=== PATIENT | female | born 1950 | race Caucasian/White ===

== ENCOUNTER 2016-07-18 10:05 | Emergency (ER) | payer MEDICARE, MEDICAID ==
--- NOTE | 2016-07-18 10:19 | ER Document Report ---
ED Medical Screen (RME) - General Stated Complaint: FEVER Mode of Arrival: Ambulatory Information source: Patient Notes: Patient presents to the emergency departments fever and her face hurts. Patient reports she has a history of allergies. Patient eating drinking without problems. Temperature was 99 this morning patient took Tylenol. Patient presents today with headache and reports she cannot put her teeth in because her ears are hurting. hx of HTN. Usually has fast HR. pt is on 4 psych meds. I have greeted and performed a rapid initial assessment of this patient. A comprehensive ED assessment and evaluation of the patient, analysis of test results and completion of the medical decision making process will be conducted by additional ED providers. TRAVEL OUTSIDE OF THE [place] IN LAST 30 DAYS: No - Related Data Allergies/Adverse Reactions: ciprofloxacin HCl [From Ciloxan] Allergy (Verified 08/19/15 20:23) fluoxetine HCl [From Prozac] Allergy (Verified 08/19/15 20:23) Penicillins Allergy (Verified 08/19/15 20:23) Past Medical History - Past Medical History Cardiac Medical History: Reports: Hx Hypertension Denies: Hx Coronary Artery Disease, Hx Heart Attack Pulmonary Medical History: Denies: Hx Asthma, Hx Bronchitis, Hx COPD, Hx Pneumonia Neurological Medical History: Denies: Hx Cerebrovascular Accident, Hx Seizures Endocrine Medical History: Denies: Hx Diabetes Mellitus Type 1, Hx Diabetes Mellitus Type 2 Musculoskeltal Medical History: Reports Hx Arthritis Skin Medical History: Reports Hx Cellulitis, Reports Hx MRSA Psychiatric Medical History: Reports: Hx Attention Deficit Hyperactivity Disorder, Hx Depression Past Surgical History: Reports: Hx Cholecystectomy, Hx Tonsillectomy, Hx Tubal Ligation. Denies: Hx Pacemaker - Immunizations Hx Diphtheria, Pertussis, Tetanus Vaccination: Yes - per patient within past 5 years Physical Exam - Vital signs Vitals: Temp Pulse Resp BP Pulse Ox 98.5 F 125 H 20 154/103 H 100 07/18/16 10:15 07/18/16 10:15 07/18/16 10:15 07/18/16 10:15 07/18/16 10:15 Course - Vital Signs Vital signs: Temp Pulse Resp BP Pulse Ox 98.5 F 125 H 20 154/103 H 100 07/18/16 10:15 07/18/16 10:15 07/18/16 10:15 07/18/16 10:15 07/18/16 10:15
--- NOTE | 2016-07-18 12:52 | ER Document Report ---
ED Flu Like - General Chief Complaint: Fever Stated Complaint: FEVER Mode of Arrival: Ambulatory Notes: The patient is a 65-year-old female, past medical history psychiatric illness, seasonal allergies, presents with 2 days of rhinorrhea and a rash on her chin after she was scratching at her "adult acne." She said she tried using triple antibiotic cream, but without any relief of her rash. She says that she usually receives Bactrim for her chin rash because the antibiotic cream does not work. She denies palpitations, fevers, difficulty swallowing, nausea, vomiting, chest pain, back pain, shortness of breath or tongue elevation. TRAVEL OUTSIDE OF THE [place] IN LAST 30 DAYS: No - Related Data Allergies/Adverse Reactions: ciprofloxacin HCl [From Ciloxan] Allergy (Verified 07/18/16 10:19) fluoxetine HCl [From Prozac] Allergy (Verified 07/18/16 10:19) Penicillins Allergy (Verified 07/18/16 10:19) Past Medical History - General Information source: Patient - Social History Smoking Status: Current Every Day Smoker Chew tobacco use (# tins/day): No Frequency of alcohol use: None Drug Abuse: None Family History: DM Patient has suicidal ideation: No Patient has homicidal ideation: No - Past Medical History Cardiac Medical History: Reports: Hx Hypertension Denies: Hx Coronary Artery Disease, Hx Heart Attack Pulmonary Medical History: Denies: Hx Asthma, Hx Bronchitis, Hx COPD, Hx Pneumonia Neurological Medical History: Denies: Hx Cerebrovascular Accident, Hx Seizures Endocrine Medical History: Denies: Hx Diabetes Mellitus Type 1, Hx Diabetes Mellitus Type 2 Renal/ Medical History: Denies: Hx Peritoneal Dialysis Musculoskeltal Medical History: Reports Hx Arthritis Skin Medical History: Reports Hx Cellulitis, Reports Hx MRSA Psychiatric Medical History: Reports: Hx Attention Deficit Hyperactivity Disorder, Hx Depression Past Surgical History: Reports: Hx Cholecystectomy, Hx Tonsillectomy, Hx Tubal Ligation. Denies: Hx Pacemaker - Immunizations Hx Diphtheria, Pertussis, Tetanus Vaccination: Yes - per patient within past 5 years Review of Systems - Review of Systems Notes: REVIEW OF SYSTEMS: CONSTITUTIONAL: -fevers, -chills EENT: -eye pain, -difficulty swallowing, +nasal congestion CARDIOVASCULAR: -chest pain, -syncope. RESPIRATORY: -cough, -SOB GASTROINTESTINAL: -abdominal pain, -nausea, -vomiting, -diarrhea GENITOURINARY: -dysuria, -hematuria MUSCULOSKELETAL: -back pain, -neck pain SKIN: +rash HEMATOLOGIC: -easy bruising or bleeding. LYMPHATIC: -swollen, enlarged glands. NEUROLOGICAL: -altered mental status or loss of consciousness, -headache, - neurologic symptoms PSYCHIATRIC: -anxiety, -depression. ALL OTHER SYSTEMS REVIEWED AND NEGATIVE. Physical Exam - Vital signs Vitals: Temp Pulse Resp BP Pulse Ox 98.5 F 125 H 20 154/103 H 100 07/18/16 10:15 07/18/16 10:15 07/18/16 10:15 07/18/16 10:15 07/18/16 10:15 - Notes Notes: PHYSICAL EXAMINATION: GENERAL: Well-appearing, well-nourished and in no acute distress. HEAD: Atraumatic, normocephalic. EYES: Pupils equal round and reactive to light, extraocular movements intact, sclera anicteric, conjunctiva are normal. ENT: nares patent, oropharynx clear without exudates. Swollen turbinates, Moist mucous membranes. NECK: Normal range of motion, supple without lymphadenopathy LUNGS: Breath sounds clear to auscultation bilaterally and equal. No wheezes rales or rhonchi. HEART: Regular rate and rhythm without murmurs ABDOMEN: Soft, nontender, normoactive bowel sounds. No guarding, no rebound. No masses appreciated. EXTREMITIES: Normal range of motion, no pitting or edema. No cyanosis. NEUROLOGICAL: Cranial nerves grossly intact. Normal speech, normal gait. Normal sensory, motor, and reflex exams. PSYCH: Normal mood, normal affect. SKIN: Erythematous rash with scabbed over lesions, Warm, Dry, normal turgor Course - Re-evaluation Re-evalutation: Patient appears well. Her initial tachycardia of 125 resolved when she was in the room. When I saw the patient, her heart rate was in the 80s. Patient has symptoms of allergic rhinitis. Instructed her about treatment with nasal steroids and antihistamines and she understands. Also has chin cellulitis. Will treat her with Bactrim and follow-up with primary care physician. Given strict return precautions and she understands. - Vital Signs Vital signs: Temp Pulse Resp BP Pulse Ox 98.7 F 78 18 138/82 H 98 07/18/16 16:00 07/18/16 16:00 07/18/16 16:00 07/18/16 16:00 07/18/16 16:00 Discharge - Discharge Clinical Impression: Seasonal allergic rhinitis Qualifiers: Allergic rhinitis trigger: unspecified Qualified Code(s): J30.2 - Other seasonal allergic rhinitis Cellulitis Qualifiers: Site of cellulitis: face Qualified Code(s): L03.211 - Cellulitis of face Condition: Good Disposition: HOME, SELF-CARE Additional Instructions: Cellulitis You have an infection of your skin and underlying soft tissues called cellulitis. This is due to bacteria, which can enter through any break in the skin, or even through an irritated hair follicle. Untreated, cellulitis will usually worsen. Antibiotics are required. Usually, warm packs or warm soaks, and elevation of the infected area are recommended. You should start getting better within 24 to 36 hours. Most infections respond quickly to the right medication. Follow-up care is important, however, to check for abscess (boil) formation, unsuspected foreign body, or resistant infection. If you develop fever, chills, or if the area of infection is becoming rapidly more swollen or painful, call the doctor at once. ACUTE ALLERGIC REACTION: Your symptoms are due to an allergic reaction. Allergy can cause hives, swelling of the hands, feet, and face, hoarseness, and difficulty swallowing or breathing. It may be due to exposure to medication, animal dander, foods, infection, or insect bites. Medication is a common cause, even when prior use of this same medication caused no problems. Acute treatment may include adrenalin and antihistamines. Usually, the specific allergic agent can't be identified unless repeated episodes occur. Home treatment includes the following: (1) Stop any suspicious medications. This will be discussed with you. (2) Oral antihistamines for the next four to five days. Example, diphenhydramine (Benadryl) every four hours. (3) You may also use cimetidine (Tagamet), ranitidine (Zantac), or famotidine ( Pepcid) every four hours if diphenhydramine is not controlling itching and hives. (4) Avoid aspirin until the hives completely disappear. (5) Avoid hot baths or showers until the hives are completely gone. Call the doctor if faintness, difficulty swallowing, tightness in the chest , or wheezing occurs. ANTIHISTAMINES: An antihistamine has been given and/or prescribed to control your symptoms. Antihistamines are used for many reasons, including itching, watering eyes, runny nose, allergic swelling, hives, and insect stings. Antihistamines may cause drowsiness, especially with the first dose. Do not operate machinery or drive while under the effects of the medication. Other common side effects include dry mouth and eyes. In older persons, antihistamines can occasionally cause urinary retention, constipation, and trouble focusing the eyes. Do not combine the medication with alcohol, or with any other medication without talking to your doctor. FOLLOW-UP CARE: If you have been referred to a physician for follow-up care, call the physician s office for an appointment as you were instructed or within the next two days. If you experience worsening or a significant change in your symptoms, notify the physician immediately or return to the Emergency Department at any time for re-evaluation. Prescriptions: Cetirizine HCl [Zyrtec 10 mg Tablet] 1 tab PO DAILY #30 tablet Fluticasone Propionate [Flonase Nasal Exline 50 Mcg/Exline 16 gm] 2 sprays NASL Q12 #1 inhaler Sulfamethoxazole/Trimethoprim [Bactrim Ds Tablet] 2 each PO BID #40 tablet
[2016-07-18 17:56] VITALS: BP 138/82
== END 2016-07-18 16:00 | disposition home or self-care (01) ==
LOC: ER 10:05
DX: J30.2 Other seasonal allergic rhinitis (principal); L03.211 Cellulitis of face; R00.0 Tachycardia, unspecified; R50.9 Fever, unspecified; F17.200 Nicotine dependence, unspecified, uncomplicated; I10 Essential (primary) hypertension; Z88.0 Allergy status to penicillin; Z88.3 Allergy status to other anti-infective agents; Z86.14 Personal history of Methicillin resistant Staphylococcus aureus infection; Z90.49 Acquired absence of other specified parts of digestive tract; Z98.51 Tubal ligation status
CPT/HCPCS: 99283

== ENCOUNTER → 2016-11-18 | Outpatient (CLI) | payer MEDICARE, MEDICAID ==
--- NOTE | 2016-11-18 12:39 | WOMENS IMAGING REPORT ---
EXAM DESCRIPTION: BILAT SCREENING MAMMO W/CAD COMPLETED DATE/TIME: 11/18/2016 10:44 am REASON FOR STUDY: ROUTINE SCREENING; Z12.31 Z12.31 ENCNTR SCREEN MAMMOGRAM FOR MALIGNANT NEOPLASM O F CHRISTIANO COMPARISON: 2011 TECHNIQUE: Standard craniocaudal and mediolateral oblique views of each breast recorded using Sogou[employer] l acquisition. LIMITATIONS: None. FINDINGS: No masses, calcifications or architectural distortion. No areas of suspicion. Read with the assistance of CAD. .[facility] - R2 Cenova Version 1.3 .[facility] - R2 Cenova Version 1.[address] - R2 Cenova Version 2.4 .[facility] - R2 Cenova Version 2.4 .[facility] - R2 District [employer] Version 9.2 IMPRESSION: NORMAL MAMMOGRAM. BIRADS 1. BREAST DENSITY: b. There are scattered areas of fibroglandular density. BIRAD: 1 NEGATIVE RECOMMENDATION: ROUTINE SCREENING COMMENT: The patient has been notified of the results by letter per SA requirements. Additional no tification policies are in place for contacting patient with suspicious or incomplete findings. Quality ID #[id number]: The [employer] recommends an annual screening mammogram for women aged 40 years or over. This facility utilizes a reminder system to ensure that all patients receive reminder letters, and/or direct phone calls for appointments. This includes reminders for routine scr eening mammograms, diagnostic mammograms, or other Breast Imaging Interventions when appropriate. Th is patient will be placed in the appropriate reminder system. The [employer] (ACR) has developed recommendations for screening MRI of the breast s in certain patient populations, to be used in conjunction with mammography. Breast MRI surveillanc e may be appropriate for women with more than 20% lifetime risk of developing breast cancer as deter mined by genetic testing, significant family history of the disease, or history of mantle radiation f or Hodgkins Disease. ACR Practice Guidelines 2008. TECHNICAL DOCUMENTATION: FINDING NUMBER: (1) ASSESSMENT: (1) JOB ID: [id number] [employer]- All Rights Reserved
== END ==
LOC: WI 10:41
PROVIDERS: ATTEND Physician Assistant
DX: Z12.31 Encounter for screening mammogram for malignant neoplasm of breast (principal)
CPT/HCPCS: 77067; G0202

== ENCOUNTER → 2017-01-12 | Outpatient (CLI) | payer MEDICARE, MEDICAID ==
--- NOTE | 2017-01-12 10:28 | WOMENS IMAGING REPORT ---
EXAM DESCRIPTION: BONE DENSITY HIP/SPINE COMPLETED DATE/TIME: 01/12/2017 9:23 am REASON FOR STUDY: AGE RELATED OSTEOPOROSIS M81.0 AGE-RELATED OSTEOPOROSIS W/O CURRENT PATHOLOGICAL FRAC COMPARISON: 2015 TECHNIQUE: Dual-Energy X-ray Absorptiometry (DEXA) of the AP Spine and Hip. LIMITATIONS: None. FINDINGS: LUMBAR SPINE: The bone mineral density (BMD) measured from L1-L4 in the AP projection correlates with a T-score of -2.5, which is osteoporotic as defined by the World Health Organization. This represents a 3.5% incr ease in bone density compared to 2015 HIP: The bone mineral density (BMD) measured in the left femoral neck at the hip correlates with a T-score of -1.9, which is osteopenic as defined by the World Health Organization. This is stable compared t o 2015 IMPRESSION: 1. LUMBAR SPINE: Osteoporotic 2. HIP: Osteopenic COMMENT: The World Health Organization defines low BMD as follows: T-score: Normal: Greater than -1.0 Osteopenia: Between -1.0 and -2.5 Osteoporosis: Less than -2.5 without fractures Established osteoporosis: Less than -2.5 with fractures In general, you may wish to consider: Diagnosis Treatment Follow-up DEXA Normal BMD Prevention 2-3 years Osteopenia Prevention/Therapy 1-2 years Osteoporosis Therapy Yearly TECHNICAL DOCUMENTATION: JOB ID: [id number]- All Rights Reserved
== END ==
LOC: WI 08:55
PROVIDERS: ATTEND Physician Assistant
DX: M81.0 Age-related osteoporosis without current pathological fracture (principal)
CPT/HCPCS: 77080

== ENCOUNTER 2017-09-06 15:18 | Emergency (ER) | payer MEDICARE, MEDICAID ==
[2017-09-06] MEDS ORDERED: ONDANSETRON HCL INJ/PF 4 MG/2 ML SDV IV ONE (16:47)
[2017-09-06] MEDS ORDERED: NORMAL SALINE 1000 ML 1,000 ML IV ONE (16:47)
--- NOTE | 2017-09-06 16:48 | ER Document Report ---
ED Medical Screen (RME) - General Chief Complaint: Abdominal Pain Stated Complaint: WEAKNESS Time Seen by Provider: 09/06/17 16:45 Notes: Patient states that she has had approximately 4-5 days of vomiting and been unable take her medications. She also states she has had blood and mucus in her stool for several months but has not been to the doctor. She states she does have a history of hepatitis C. TRAVEL OUTSIDE OF THE [place] IN LAST 30 DAYS: No - Related Data Allergies/Adverse Reactions: ciprofloxacin HCl [From Ciloxan] Allergy (Verified 09/06/17 16:26) fluoxetine HCl [From Prozac] Allergy (Verified 09/06/17 16:26) Penicillins Allergy (Verified 09/06/17 16:26) Past Medical History - Social History Chew tobacco use (# tins/day): No Frequency of alcohol use: None Drug Abuse: None - Past Medical History Cardiac Medical History: Reports: Hx Hypertension Denies: Hx Coronary Artery Disease, Hx Heart Attack Pulmonary Medical History: Denies: Hx Asthma, Hx Bronchitis, Hx COPD, Hx Pneumonia Neurological Medical History: Denies: Hx Cerebrovascular Accident, Hx Seizures Endocrine Medical History: Denies: Hx Diabetes Mellitus Type 1, Hx Diabetes Mellitus Type 2 Renal/ Medical History: Denies: Hx Peritoneal Dialysis Musculoskeltal Medical History: Reports Hx Arthritis Skin Medical History: Reports Hx Cellulitis, Reports Hx MRSA Psychiatric Medical History: Reports: Hx Attention Deficit Hyperactivity Disorder, Hx Depression Past Surgical History: Reports: Hx Cholecystectomy, Hx Tonsillectomy, Hx Tubal Ligation. Denies: Hx Pacemaker - Immunizations Hx Diphtheria, Pertussis, Tetanus Vaccination: Yes - per patient within past 5 years Physical Exam - Vital signs Vitals: Temp Pulse Resp BP Pulse Ox 98.9 F 97 16 129/81 H 98 09/06/17 15:58 09/06/17 15:58 09/06/17 15:58 09/06/17 15:58 09/06/17 15:58 Course - Vital Signs Vital signs: Temp Pulse Resp BP Pulse Ox 98.9 F 97 16 129/81 H 98 09/06/17 15:58 09/06/17 15:58 09/06/17 15:58 09/06/17 15:58 09/06/17 15:58 Doctor's Discharge - Discharge Referrals: VERONIQUE RUELAS MD [Primary Care Provider] - Follow up as needed
[2017-09-06 17:59] LABS: APPEARANCE,URINE CLEAR; BILIRUBIN,URINE NEGATIVE (NEGATIVE); COLOR,URINE YELLOW; GLUCOSE, URINE NEGATIVE (NEGATIVE); KETONES,URINE NEGATIVE (NEGATIVE); LEUKOCYTE ESTERASE,URINE TRACE (NEGATIVE); NITRITE,URINE NEGATIVE (NEGATIVE); PROTEIN,URINE NEGATIVE (NEGATIVE); UROBILINOGEN,URINE NEGATIVE mg/dL (<2.0)
[2017-09-06 18:32] LABS: ABSOLUTE MONOCYTES (AUTO) 0.5 10^3/uL (0.1-1.4); ABSOLUTE NEUT (AUTO) 3.6 10^3/uL (1.7-8.2); BASOPHILS % (AUTO) 0.8 % (0-2); EOSINOPHILS % (AUTO) 0.7 % (0-6); HEMATOCRIT 41.4 % (36.0-47.0); HEMOGLOBIN 13.4 g/dL (12.0-15.5); LYMPHOCYTES % (AUTO) 32.1 % (13-45); MEAN CORPUSCULAR HEMOGLOBIN 25.6 pg (27.0-33.4); MEAN CORPUSCULAR HGB CONC 32.4 g/dL (32.0-36.0); MEAN CORPUSCULAR VOLUME 79 fl (80-97); PLATELET COUNT 238 10^3/uL (150-450); RED BLOOD COUNT 5.25 10^6/uL (3.72-5.28); RED CELL DISTRIBUTION WIDTH 16.8 % (11.5-14.0); SEGMENTED NEUTROPHILS % (AUTO) 58.4 % (42-78); TOTAL CELLS COUNTED % (AUTO) 100 %; WHITE BLOOD COUNT 6.1 10^3/uL (4.0-10.5)
[2017-09-06] MEDS ORDERED: PROMETHAZINE HCL INJ 25 MG/1 ML VIAL IM ONE (18:55)
[2017-09-06] MEDS ORDERED: KETOROLAC TROMETHAMINE INJ/PF 30 MG/1 ML SDV IV ONE (18:56)
[2017-09-06 19:00] LABS: ALANINE AMINOTRANSFERASE 39 U/L (9-52); ALBUMIN 4.4 g/dL (3.5-5.0); ALKALINE PHOSPHATASE 73 U/L (38-126); ANION GAP 10 (5-19); ASPARTATE AMINO TRANSFERASE 46 U/L (14-36); BILIRUBIN,DIRECT 0.4 mg/dL (0.0-0.4); BILIRUBIN,TOTAL 0.6 mg/dL (0.2-1.3); BLOOD UREA NITROGEN 12 mg/dL (7-20); CALCIUM 10.8 mg/dL (8.4-10.2); CARBON DIOXIDE 31 mmol/L (22-30); CHLORIDE 101 mmol/L (98-107); GLUCOSE 112 mg/dL (75-110); LIPASE 275.7 U/L (23-300); TOTAL PROTEIN 8.5 g/dL (6.3-8.2)
[2017-09-06] MEDS ORDERED: DICYCLOMINE HCL 20 MG TABLET PO ONE (19:04)
--- NOTE | 2017-09-06 19:19 | ER Document Report ---
ED General - General Mode of Arrival: Ambulatory Information source: Patient TRAVEL OUTSIDE OF THE [place] IN LAST 30 DAYS: No <KATIE FRANKLIN - Last Filed: 09/06/17 20:12> <YAIN BAKER - Last Filed: 09/06/17 20:14> - General Chief Complaint: Abdominal Pain Stated Complaint: WEAKNESS Time Seen by Provider: 09/06/17 16:45 Notes: Patient is a 66 year old female with a history of Hepatitis C presents to the emergency department complaining of multiple symptoms including nausea, vomiting , abdominal pain, bilateral flank pain, and dysuria (which she relates to recent constipation) onset 4-5 days ago. Patient states she believes are due to her Hepatitis C and further mentions she has not been able to take her medications. Patients states the nausea medication she received in triage did not alleviate her symptoms. (KATIE FRANKLIN) - Related Data Allergies/Adverse Reactions: ciprofloxacin HCl [From Ciloxan] Allergy (Verified 09/06/17 16:26) fluoxetine HCl [From Prozac] Allergy (Verified 09/06/17 16:26) Penicillins Allergy (Verified 09/06/17 16:26) Past Medical History - General Information source: Patient - Social History Smoking Status: Current Every Day Smoker Chew tobacco use (# tins/day): No Frequency of alcohol use: None Drug Abuse: None Family History: DM Patient has suicidal ideation: No Patient has homicidal ideation: No - Past Medical History Cardiac Medical History: Reports: Hx Hypertension GI Medical History: Reports: Hx Gastroesophageal Reflux Disease Musculoskeltal Medical History: Reports Hx Arthritis Skin Medical History: Reports Hx Cellulitis, Reports Hx MRSA Psychiatric Medical History: Reports: Hx Attention Deficit Hyperactivity Disorder, Hx Bipolar Disorder, Hx Depression Past Surgical History: Reports: Hx Cholecystectomy, Hx Tonsillectomy, Hx Tubal Ligation - Immunizations Hx Diphtheria, Pertussis, Tetanus Vaccination: Yes - per patient within past 5 years <KATIE FRANKLIN - Last Filed: 09/06/17 20:12> Review of Systems - Review of Systems Constitutional: No symptoms reported EENT: No symptoms reported Cardiovascular: No symptoms reported Respiratory: No symptoms reported Gastrointestinal: See HPI, Abdominal pain, Nausea, Vomiting Genitourinary: See HPI, Dysuria, Flank pain Female Genitourinary: No symptoms reported Musculoskeletal: No symptoms reported Skin: No symptoms reported Hematologic/Lymphatic: No symptoms reported Neurological/Psychological: No symptoms reported -: Yes All other systems reviewed and negative <KATIE FRANKLIN - Last Filed: 09/06/17 20:12> Physical Exam <KATIE FRANKLIN - Last Filed: 09/06/17 20:12> <YANI BAKER - Last Filed: 09/06/17 20:14> - Vital signs Vitals: Temp Pulse Resp BP Pulse Ox 98.9 F 97 16 129/81 H 98 09/06/17 15:58 09/06/17 15:58 09/06/17 15:58 09/06/17 15:58 09/06/17 15:58 - Notes Notes: GENERAL: Alert, interacts well. No acute distress. HEAD: Normocephalic, atraumatic. EYES: Pupils equal, round, and reactive to light. Extraocular movements intact. ENT: Oral mucosa moist, tongue midline NECK: Full range of motion. Supple. Trachea midline. LUNGS: Right lateral chest wall tenderness to palpation. Clear to auscultation bilaterally, no wheezes, rales, or rhonchi. No respiratory distress. ABDOMEN: Soft, RUQ tenderness to palpation. Non-distended. Bowel sounds present in all 4 quadrants. EXTREMITIES: Moves all 4 extremities spontaneously. NEUROLOGICAL: Alert and oriented x3. Normal speech. PSYCH: Normal affect, normal mood. SKIN: Warm, dry, normal turgor. No rashes or lesions noted. (NOEMIKATIE LOMAS) Course - Laboratory Result Diagrams: 09/06/17 18:12 09/06/17 18:12 <KATIE FRANKLIN - Last Filed: 09/06/17 20:12> - Laboratory Result Diagrams: 09/06/17 18:12 09/06/17 18:12 - Diagnostic Test Radiology reviewed: Reports reviewed <YANI BAKER - Last Filed: 09/06/17 20:14> - Re-evaluation Re-evalutation: 09/06/17 20:09 Patient is a 66-year-old female who comes in complaining of some abdominal discomfort and nausea which she relates to her chronic hepatitis. Patient denies cough or fever. Patient states that she has had dysuria recently related to constipation. Abdomen is soft nondistended and nonsurgical appearing. Troponin negative and chest x-ray with no acute findings. Blood work within normal limits. Patient is feeling better after nausea medication and fluids. She is now keeping p.o. down. Denies any blood in her stool and does not want a rectal exam today. She is to follow-up with her doctor if she has any further concerns. Stable for discharge. Understands and agrees with plan. (YANI BAKER) - Vital Signs Vital signs: Temp Pulse Resp BP Pulse Ox 98.9 F 97 16 129/81 H 98 09/06/17 15:58 09/06/17 15:58 09/06/17 15:58 09/06/17 15:58 09/06/17 15:58 - Laboratory Laboratory results interpreted by me: 09/06/17 09/06/17 09/06/17 16:00 18:12 18:12 MCV 79 L MCH 25.6 L RDW 16.8 H Carbon Dioxide 31 H Glucose 112 H Calcium 10.8 H AST 46 H Total Protein 8.5 H Ur Leukocyte Esterase TRACE H Discharge <KATIE FRANKLIN - Last Filed: 09/06/17 20:12> <YANI BAKER - Last Filed: 09/06/17 20:14> - Discharge Clinical Impression: Abdominal discomfort Nausea & vomiting Qualifiers: Vomiting type: unspecified Vomiting Intractability: non-intractable Qualified Code(s): R11.2 - Nausea with vomiting, unspecified Condition: Stable Disposition: HOME, SELF-CARE Instructions: Abdominal Pain ([facility]), Vomiting ([facility]) Prescriptions: Ondansetron [Zofran Odt 4 mg Tablet] 1 tab PO Q6HP PRN #15 tab.rapdis PRN Reason: For Nausea/Vomiting Dicyclomine HCl [Bentyl 20 mg Tablet] 20 mg PO TIDP PRN #40 tablet PRN Reason: Promethazine HCl [Phenergan 25 mg Tablet] 1 tab PO Q6H PRN #15 tablet PRN Reason: Referrals: VERONIQUE RUELAS MD [Primary Care Provider] - Follow up in 3-5 days Scribe Documentation - Scribe Written by Kori:: Kori Bond, 09/06/2017 19:22 acting as scribe for :: Delphine <KATIE FRANKLIN - Last Filed: 09/06/17 20:12>
--- NOTE | 2017-09-06 19:43 | RADIOLOGY REPORT (SQ) ---
EXAM DESCRIPTION: CHEST 2 VIEWS COMPLETED DATE/TIME: 09/06/2017 7:32 pm REASON FOR STUDY: pain, possible fever COMPARISON: None. EXAM PARAMETERS: NUMBER OF VIEWS: two views TECHNIQUE: Digital Frontal and Lateral radiographic views of the chest acquired. RADIATION DOSE: NA LIMITATIONS: none FINDINGS: LUNGS AND PLEURA: No opacities, masses or pneumothorax. No pleural effusion. MEDIASTINUM AND HILAR STRUCTURES: No masses or contour abnormalities. HEART AND VASCULAR STRUCTURES: Heart normal size. No evidence for failure. BONES: No acute findings. HARDWARE: None in the chest. OTHER: No other significant finding. IMPRESSION: NO ACUTE RADIOGRAPHIC FINDING IN THE CHEST. TECHNICAL DOCUMENTATION: JOB ID: [id number] [employer]- All Rights Reserved Reading location - IP/workstation name: [email or web address]
[2017-09-06 20:18] VITALS: BP 134/80
--- NOTE | 2017-09-07 22:38 | EKG REPORT ---
SEVERITY:- BORDERLINE ECG - SINUS RHYTHM PROBABLE LEFT ATRIAL ABNORMALITY : Confirmed by: Maira Castañeda 07-Sep-2017 22:37:02
== END 2017-09-06 20:28 | disposition home or self-care (01) ==
LOC: ER 15:18
DX: R10.9 Unspecified abdominal pain (principal); R11.2 Nausea with vomiting, unspecified; R53.1 Weakness; R30.0 Dysuria; I10 Essential (primary) hypertension; F17.200 Nicotine dependence, unspecified, uncomplicated; Z86.19 Personal history of other infectious and parasitic diseases; Z88.0 Allergy status to penicillin; Z86.14 Personal history of Methicillin resistant Staphylococcus aureus infection; Z90.49 Acquired absence of other specified parts of digestive tract; Z98.51 Tubal ligation status
CPT/HCPCS: 93005; 99285; 96372; 96361; 96374; 36415; 83690; 85025; 80053; 81001; 84484; 71046; 93010; A9270; J2550; J2405; J7030; J3490

== ENCOUNTER 2017-09-26 18:15 | Emergency (ER) | payer MEDICARE, MEDICAID ==
[2017-09-26] MEDS ORDERED: PREDNISONE 20 MG TABLET PO ONE (19:27)
[2017-09-26] MEDS ORDERED: CLINDAMYCIN HCL 150 MG CAPSULE PO ONE (19:27)
[2017-09-26] MEDS ORDERED: DIPHENHYDRAMINE HCL 50 MG CAPSULE PO ONE (19:28)
--- NOTE | 2017-09-26 19:33 | ER Document Report ---
ED General - General Chief Complaint: Skin Sore(s) Stated Complaint: POSSIBLE RASH Time Seen by Provider: 09/26/17 19:15 Mode of Arrival: Ambulatory Information source: Patient TRAVEL OUTSIDE OF THE [place] IN LAST 30 DAYS: No - HPI Notes: Patient is a 66-year-old female with history of previous cellulitis presents to the emergency department with report that she has had 3-4 day history of skin rash and irritation in various locations worse left arm and left ear. The patient is unaware of any new exposures or insect bites or new foods or medication changes, but the patient reports itching with the skin rash. She denies any difficulty breathing but questions mild swelling around her gumline in her mouth. The patient denies any chest pain or difficulty breathing or fever or chills or nausea or vomiting. - Related Data Allergies/Adverse Reactions: ciprofloxacin HCl [From Ciloxan] Allergy (Verified 09/26/17 18:16) fluoxetine HCl [From Prozac] Allergy (Verified 09/26/17 18:16) Penicillins Allergy (Verified 09/26/17 18:16) Past Medical History - General Information source: Patient - Social History Smoking Status: Unknown if Ever Smoked Frequency of alcohol use: None Drug Abuse: None Lives with: Alone Family History: DM Patient has suicidal ideation: No Patient has homicidal ideation: No - Past Medical History Cardiac Medical History: Reports: Hx Hypertension Denies: Hx Coronary Artery Disease, Hx Heart Attack Pulmonary Medical History: Denies: Hx Asthma, Hx Bronchitis, Hx COPD, Hx Pneumonia Neurological Medical History: Denies: Hx Cerebrovascular Accident, Hx Seizures Endocrine Medical History: Denies: Hx Diabetes Mellitus Type 1, Hx Diabetes Mellitus Type 2 Renal/ Medical History: Denies: Hx Peritoneal Dialysis GI Medical History: Reports: Hx Gastroesophageal Reflux Disease Musculoskeltal Medical History: Reports Hx Arthritis Skin Medical History: Reports Hx Cellulitis, Reports Hx MRSA Psychiatric Medical History: Reports: Hx Attention Deficit Hyperactivity Disorder, Hx Bipolar Disorder, Hx Depression Past Surgical History: Reports: Hx Cholecystectomy, Hx Tonsillectomy, Hx Tubal Ligation. Denies: Hx Pacemaker - Immunizations Hx Diphtheria, Pertussis, Tetanus Vaccination: Yes - per patient within past 5 years Review of Systems - Review of Systems Notes: REVIEW OF SYSTEMS: CONSTITUTIONAL : Denies fever, chills, or sweats. EENT: Denies eye, ear, throat is symptoms. Denies nasal or sinus congestion or discharge. Denies throat, tongue swelling or difficulty swallowing. CARDIOVASCULAR: Denies chest pain. Denies palpitations or racing or irregular heart beat. Denies ankle edema. RESPIRATORY: Denies cough, cold, or chest congestion. Denies shortness of breath, difficulty breathing, or wheezing. GASTROINTESTINAL: Denies abdominal pain or distention. Denies nausea, vomiting , or diarrhea. Denies blood in vomitus, stools, or per rectum. Denies black, tarry stools. Denies constipation. GENITOURINARY: Denies difficulty urinating, painful urination, burning, frequency, blood in urine, or discharge. FEMALE GENITOURINARY: Denies vaginal bleeding, heavy or abnormal periods, irregular periods. Denies vaginal discharge or odor. MUSCULOSKELETAL: Denies back or neck pain or stiffness. Denies joint pain or swelling. SKIN: Patient reports skin rash with itching. HEMATOLOGIC : Denies easy bruising or bleeding. LYMPHATIC: Denies swollen, enlarged glands. NEUROLOGICAL: Denies confusion or altered mental status. Denies passing out or loss of consciousness. Denies dizziness or lightheadedness. Denies headache. Denies weakness or paralysis or loss of use of either side. Denies problems with gait or speech. Denies sensory loss, numbness, or tingling. Denies seizures. PSYCHIATRIC: Denies anxiety or stress. Denies depression, suicidal ideation, or homicidal ideation. ALL OTHER SYSTEMS REVIEWED AND NEGATIVE. Dictation was performed using [employer] voice recognition software Physical Exam - Vital signs Vitals: Temp Pulse Resp BP Pulse Ox 99.4 F 84 20 153/92 H 98 09/26/17 18:27 09/26/17 18:27 09/26/17 18:27 09/26/17 18:27 09/26/17 18:27 - Notes Notes: PHYSICAL EXAMINATION: GENERAL: Well-appearing, well-nourished and in no acute distress. HEAD: Atraumatic, normocephalic. EYES: Pupils equal round and reactive to light, extraocular movements intact, conjunctiva are normal. ENT: Nares patent, oropharynx clear without exudates. Moist mucous membranes. No obvious oropharyngeal swelling or mucous membrane lesions. NECK: Normal range of motion, supple without lymphadenopathy LUNGS: Breath sounds clear to auscultation bilaterally and equal. No wheezes rales or rhonchi. HEART: Regular rate and rhythm without murmurs ABDOMEN: Soft, nontender, nondistended abdomen. No guarding, no rebound. No masses appreciated. Female : deferred Musculoskeletal: Normal range of motion, no pitting or edema. No cyanosis. No arthralgias or swelling. NEUROLOGICAL: Cranial nerves grossly intact. Normal speech, normal gait. Normal sensory, motor exams PSYCH: Normal mood, normal affect. SKIN: Warm, Dry, normal turgor. Minimal urticaria noted with scattered areas on legs to on the trunk, but area on the left lateral forearm and the left ear show questionable early cellulitis. No petechiae. No evidence for abscess. Distally, the patient is neurovascularly intact. Course - Re-evaluation Re-evalutation: 09/26/17 19:37 Patient was given clindamycin, prednisone and Benadryl. No evidence for significant abscess or anaphylaxis or systemic infection or other abnormality. - Vital Signs Vital signs: Temp Pulse Resp BP Pulse Ox 99.4 F 84 20 153/92 H 98 09/26/17 18:27 09/26/17 18:27 09/26/17 18:27 09/26/17 18:27 09/26/17 18:27 Discharge - Discharge Clinical Impression: Allergic reaction Qualifiers: Encounter type: initial encounter Qualified Code(s): T78.40XA - Allergy, unspecified, initial encounter Cellulitis Qualifiers: Site of cellulitis: other site Qualified Code(s): L03.818 - Cellulitis of other sites Condition: Stable Disposition: HOME, SELF-CARE Instructions: Acute Allergic Reaction ([facility]), Cellulitis ([facility]) Additional Instructions: Take Benadryl as directed for itching and skin rash. Return to the emergency department in case of severe itching or rash or fever or worsening redness. Prescriptions: Clindamycin HCl [Cleocin 150 mg Capsule] 150 mg PO Q6 #40 capsule Prednisone [Deltasone 10 mg Tablet] 10 mg PO ASDIR PRN #21 tablet PRN Reason: Referrals: VERONIQUE RUELAS MD [Primary Care Provider] - Follow up as needed
[2017-09-26] MEDS ORDERED: TRAMADOL HCL 50 MG TABLET PO ONE (19:52)
[2017-09-26 20:01] VITALS: BP 176/95
== END 2017-09-26 20:01 | disposition home or self-care (01) ==
LOC: ER 18:15
DX: L03.818 Cellulitis of other sites (principal); T78.40XA Allergy, unspecified, initial encounter; L98.9 Disorder of the skin and subcutaneous tissue, unspecified
CPT/HCPCS: 99283; A9270 ×4; J7512

== ENCOUNTER 2017-10-19 10:22 | Emergency (ER) | payer MEDICARE, MEDICAID ==
--- NOTE | 2017-10-19 11:24 | ER Document Report ---
ED General - General Chief Complaint: Fall Stated Complaint: FALL/FACE INJURY Time Seen by Provider: 10/19/17 11:18 TRAVEL OUTSIDE OF THE [place] IN LAST 30 DAYS: No - HPI Patient complains to provider of: fall head injury Notes: Patient coming in for evaluation after a fall. Patient states she tripped and fell last night no loss consciousness however landed straight on her face. Patient has obvious swelling to the bridge of her nose was seen in urgent care encouraged to come to ER for further evaluation and CT scan of her head. Patient denies being on any blood thinning medications. Patient states only pain she is having is at the nasal bridge. Denies any oral pain with minimal pain or extremity pain. Patient alert and oriented 3 - Related Data Allergies/Adverse Reactions: ciprofloxacin HCl [From Ciloxan] Allergy (Verified 10/19/17 10:23) fluoxetine HCl [From Prozac] Allergy (Verified 10/19/17 10:23) Penicillins Allergy (Verified 10/19/17 10:23) Past Medical History - Social History Smoking Status: Current Every Day Smoker Chew tobacco use (# tins/day): No Frequency of alcohol use: None Drug Abuse: None Family History: DM Patient has suicidal ideation: No Patient has homicidal ideation: No - Past Medical History Cardiac Medical History: Reports: Hx Hypertension Denies: Hx Coronary Artery Disease, Hx Heart Attack Pulmonary Medical History: Denies: Hx Asthma, Hx Bronchitis, Hx COPD, Hx Pneumonia Neurological Medical History: Denies: Hx Cerebrovascular Accident, Hx Seizures Endocrine Medical History: Denies: Hx Diabetes Mellitus Type 1, Hx Diabetes Mellitus Type 2 Renal/ Medical History: Denies: Hx Peritoneal Dialysis GI Medical History: Reports: Hx Gastroesophageal Reflux Disease Musculoskeltal Medical History: Reports Hx Arthritis Skin Medical History: Reports Hx Cellulitis, Reports Hx MRSA Psychiatric Medical History: Reports: Hx Attention Deficit Hyperactivity Disorder, Hx Bipolar Disorder, Hx Depression Past Surgical History: Reports: Hx Cholecystectomy, Hx Tonsillectomy, Hx Tubal Ligation. Denies: Hx Pacemaker - Immunizations Hx Diphtheria, Pertussis, Tetanus Vaccination: Yes - per patient within past 5 years Review of Systems - Review of Systems Constitutional: No symptoms reported EENT: Other - Nasal pain Cardiovascular: No symptoms reported Respiratory: No symptoms reported Gastrointestinal: No symptoms reported Genitourinary: No symptoms reported Female Genitourinary: No symptoms reported Musculoskeletal: No symptoms reported Skin: No symptoms reported Hematologic/Lymphatic: No symptoms reported Neurological/Psychological: No symptoms reported -: Yes All other systems reviewed and negative Physical Exam - Vital signs Vitals: Temp Pulse Resp BP Pulse Ox 98.3 F 105 H 18 154/84 H 98 10/19/17 10:27 10/19/17 10:27 10/19/17 10:27 10/19/17 10:27 10/19/17 10:27 Interpretation: Normal - General General appearance: Appears well, Alert - HEENT Head: Normocephalic, Atraumatic Eyes: Normal Conjunctiva: Normal Cornea: Normal Extraocular movements intact: Yes Pupils: PERRL Nasal: Other - Swelling in his abrasion with bilateral ecchymosis. Patient does not have any signs of septal hematomas upon looking in both nares. - Respiratory Respiratory status: No respiratory distress Chest status: Nontender Breath sounds: Normal Chest palpation: Normal - Cardiovascular Rhythm: Regular Heart sounds: Normal auscultation Murmur: No - Abdominal Inspection: Normal Distension: No distension Bowel sounds: Normal Tenderness: Nontender Organomegaly: No organomegaly - Back Back: Normal, Nontender - Extremities General upper extremity: Normal inspection, Nontender, Normal color, Normal ROM , Normal temperature General lower extremity: Normal inspection, Nontender, Normal color, Normal ROM , Normal temperature, Normal weight bearing. No: Patito's sign - Neurological Neuro grossly intact: Yes Cognition: Normal Orientation: AAOx4 Lisandro Coma Scale Eye Opening: Spontaneous Lisandro Coma Scale Verbal: Oriented Lisandro Coma Scale Motor: Obeys Commands Finley Coma Scale Total: 15 Speech: Normal Motor strength normal: LUE, RUE, LLE, RLE Sensory: Normal - Psychological Associated symptoms: Normal affect, Normal mood - Skin Skin Temperature: Warm Skin Moisture: Dry Skin Color: Normal Course - Re-evaluation Re-evalutation: 10/19/17 11:[address] scan performed showing no signs of acute intracranial injury. 10/19/17 14:13 CT scan was negative for acute intracranial injury also negative for nasal fracture. This was relayed to the patient was much relieved. Patient was continue with ice packs explained patient to take Tylenol Motrin however states that she has hepatitis C and will refrain from taking anything for her pain level at her wounds heal naturally. Patient will be discharged home - Vital Signs Vital signs: Temp Pulse Resp BP Pulse Ox 98.2 F 94 17 153/87 H 100 10/19/17 13:19 10/19/17 13:19 10/19/17 13:19 10/19/17 13:19 10/19/17 13:19 Discharge - Discharge Clinical Impression: Closed head injury, Facial contusion Condition: Good Disposition: HOME, SELF-CARE Instructions: Contusion ([facility]), Head Injury Precautions ([facility]) Additional Instructions: Your CT scan did not show any signs of nasal fracture. Would recommend taking Tylenol for pain control may also place ice packs in your nose to help out with swelling. When I recommend follow-up with her primary care physician in 1-2 weeks. Return to the ER for any other concerning issues. CT of the head also did not show any signs of bleeding or any intracranial abnormality Referrals: VERONIQUE RUELAS MD [Primary Care Provider] - Follow up as needed
--- NOTE | 2017-10-19 12:49 | RADIOLOGY REPORT (SQ) ---
EXAM DESCRIPTION: CT HEAD WITHOUT COMPLETED DATE/TIME: 10/19/2017 12:03 pm REASON FOR STUDY: nasal injury fall COMPARISON: CT brain 05/31/2013 TECHNIQUE: Axial images acquired through the brain without intravenous contrast. Images reviewed wi th bone, brain and subdural windows. Additional sagittal and coronal reconstructions were generated. Images stored on PACS. All CT scanners at this facility use dose modulation, iterative reconstruction, and/or weight based d osing when appropriate to reduce radiation dose to as low as reasonably achievable (ALARA). [facility]: Dose Right [facility]: CareDose [facility]: Dose Right [facility]: Teradose 4D [facility]: Vimbly RADIATION DOSE: CT Rad equipment meets quality standard of care and radiation dose reduction techniq ues were employed. CTDIvol: 53.2 mGy. DLP: 1017 mGy-cm. mGy. LIMITATIONS: None. FINDINGS: VENTRICLES: Normal size and contour. CEREBRUM: No masses. No hemorrhage. No midline shift. No evidence for acute infarction. Extensive areas of low density in the white matter, most likely chronic small vessel ischemic change. This is stable compared to 2013 CEREBELLUM: No masses. No hemorrhage. No alteration of density. No evidence for acute infarction. EXTRAAXIAL SPACES: No fluid collections. No masses. ORBITS AND GLOBE: No intra- or extraconal masses. Normal contour of globe without masses. CALVARIUM: No fracture. PARANASAL SINUSES: No fluid or mucosal thickening. SOFT TISSUES: No mass or hematoma. No nasal bone fracture OTHER: No other significant finding. IMPRESSION: No acute facial fractures. No acute intracranial changes. Extensive white matter disease EVIDENCE OF ACUTE STROKE: NO. COMMENT: Quality ID # [id number]: Final reports with documentation of one or more dose reduction techniques (e.g., Automated exposure control, adjustment of the mA and/or kV according to patient size, use of iterative reconstruction technique) TECHNICAL DOCUMENTATION: JOB ID: [id number] [employer]- All Rights Reserved Reading location - IP/workstation name: [email or web address]
[2017-10-19 13:20] VITALS: BP 153/87
== END 2017-10-19 13:20 | disposition home or self-care (01) ==
LOC: ER 10:22
DX: S09.90XA Unspecified injury of head, initial encounter (principal); S00.83XA Contusion of other part of head, initial encounter; W01.0XXA Fall on same level from slipping, tripping and stumbling without subsequent striking against object, initial encounter; F17.200 Nicotine dependence, unspecified, uncomplicated; Z88.0 Allergy status to penicillin; I10 Essential (primary) hypertension; Z90.49 Acquired absence of other specified parts of digestive tract; Z98.51 Tubal ligation status
CPT/HCPCS: 70450; 99284

== ENCOUNTER 2019-05-16 23:51 | Emergency (ER) | payer MEDICARE, MEDICAID ==
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
--- NOTE | 2019-05-17 01:42 | RADIOLOGY REPORT (SQ) ---
EXAM DESCRIPTION: CT MAXILLOFACIAL WITHOUT IV CONTRAST COMPLETED DATE/TME: 05/17/2019 00:17 CLINICAL HISTORY: 68 years Female nose injury COMPARISON: None. TECHNIQUE: Contiguous axial images obtained through the maxillofacial region without IV contrast. Reformatted images obtained. This exam was performed according to our department optimization program which includes automated exposure control, adjustment of the mA and/or kv according to patient size and/or use of iterative reconstruction technique. FINDINGS: The post septal orbits appear unremarkable. No significant mucosal thickening or air-fluid levels in the paranasal sinuses. The visualized segments of the middle ears and mastoid air cells appear clear. Mucous retention cyst or polyp in the left maxillary sinus. Comminuted fracture of the nasal bones with associated soft tissue swelling. Nasal septum appears intact. IMPRESSION: Comminuted fracture of the nasal bones with soft tissue swelling
[2019-05-17] MEDS ORDERED: ALPRAZOLAM 0.5 MG TABLET PO ONE (10:29)
[2019-05-17] MEDS ORDERED: ACETAMINOPHEN 325 MG TABLET PO ONE (10:29)
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
[2019-05-17] MEDS ORDERED: TRAZODONE HCL 50 MG TABLET PO ONE (13:43)
[2019-05-17] MEDS ORDERED: CHLORPROMAZINE HCL INJ 25 MG/1 ML AMPULE IM ONE ×2 (13:47→19:15)
[2019-05-17 14:36] LABS: ABSOLUTE BASOPHILS # (AUTO) 0.1 10^3/uL (0.0-0.2); ABSOLUTE EOSINOPHILS # (AUTO) 0.1 10^3/uL (0.0-0.6); ABSOLUTE LYMPHOCYTES (AUTO) 1.5 10^3/uL (0.5-4.7); ABSOLUTE MONOCYTES (AUTO) 0.6 10^3/uL (0.1-1.4); ABSOLUTE NEUT (AUTO) 4.2 10^3/uL (1.7-8.2); EOSINOPHILS % (AUTO) 2.2 % (0-6); HEMATOCRIT 35.2 % (36.0-47.0); HEMOGLOBIN 11.8 g/dL (12.0-15.5); MEAN CORPUSCULAR HEMOGLOBIN 26.7 pg (27.0-33.4); MEAN CORPUSCULAR HGB CONC 33.4 g/dL (32.0-36.0); MEAN CORPUSCULAR VOLUME 80 fl (80-97); MONOCYTES % (AUTO) 9.6 % (3-13); PLATELET COUNT 250 10^3/uL (150-450); RED CELL DISTRIBUTION WIDTH 16.6 % (11.5-14.0); SEGMENTED NEUTROPHILS % (AUTO) 64.2 % (42-78); TOTAL CELLS COUNTED % (AUTO) 100 %; WHITE BLOOD COUNT 6.6 10^3/uL (4.0-10.5)
[2019-05-17 14:57] LABS: ACETAMINOPHEN 11 ug/mL (10-30); ANION GAP 9 (5-19); BLOOD UREA NITROGEN 11 mg/dL (7-20); CALCIUM 10.4 mg/dL (8.4-10.2); CARBON DIOXIDE 23 mmol/L (22-30); CHLORIDE 107 mmol/L (98-107); GLUCOSE 139 mg/dL (75-110); POTASSIUM 3.7 mmol/L (3.6-5.0)
[2019-05-17 14:58] LABS: ALCOHOL < 10 mg/dL (NONE DETECTED); SALICYLATE < 1.0 mg/dL (2.0-20.0)
--- NOTE | 2019-05-17 17:52 | RADIOLOGY REPORT (SQ) ---
EXAM DESCRIPTION: CT HEAD WITHOUT COMPLETED DATE/TIME: 05/17/2019 5:23 pm REASON FOR STUDY: facial injury, psychotic behavior COMPARISON: None. TECHNIQUE: Axial images acquired through the brain without intravenous contrast. Images reviewed wi th bone, brain and subdural windows. Images stored on PACS. All CT scanners at this facility use dose modulation, iterative reconstruction, and/or weight based d osing when appropriate to reduce radiation dose to as low as reasonably achievable (ALARA). [facility]: Dose Right [facility]: CareDose [facility]: Dose Right [facility]: Teradose 4D [facility]: Smart CPower RADIATION DOSE: CT Rad equipment meets quality standard of care and radiation dose reduction techniq ues were employed. CTDIvol: 55.2 mGy. DLP: 1029 mGy-cm. mGy. LIMITATIONS: None. FINDINGS: VENTRICLES: Normal size and contour. CEREBRUM: No masses. No hemorrhage. No midline shift. No evidence for acute infarction. Extensive areas of low density in the white matter most likely chronic small vessel ischemic changes. CEREBELLUM: No masses. No hemorrhage. No alteration of density. No evidence for acute infarction. EXTRAAXIAL SPACES: No fluid collections. No masses. ORBITS AND GLOBE: No intra- or extraconal masses. Normal contour of globe without masses. CALVARIUM: No fracture. PARANASAL SINUSES: There is a mucous retention cyst in the left maxillary sinus. SOFT TISSUES: No mass or hematoma. OTHER: No other significant finding. IMPRESSION: CHRONIC MICROVASCULAR ISCHEMIA. NO ACUTE IMAGING FINDINGS IN THE BRAIN. MILD LEFT MAXIL MARU SINUS DISEASE. EVIDENCE OF ACUTE STROKE: NO. COMMENT: Quality ID # 436: Final reports with documentation of one or more dose reduction techniques (e.g., Automated exposure control, adjustment of the mA and/or kV according to patient size, use of iterative reconstruction technique) TECHNICAL DOCUMENTATION: JOB ID: [id number] 3428 [employer]- All Rights Reserved Reading location - IP/workstation name: [email or web address]
--- NOTE | 2019-05-17 18:07 | RADIOLOGY REPORT (SQ) ---
EXAM DESCRIPTION: CT CERVICAL SPINE WITHOUT COMPLETED DATE/TIME: 05/17/2019 5:23 pm REASON FOR STUDY: facial injury, psychotic behavior COMPARISON: None. TECHNIQUE: Axial images acquired through the cervical spine without intravenous contrast. Images re viewed with lung, soft tissue and bone windows. Reconstructed coronal and sagittal MPR images review ed. Images stored on PACS. All CT scanners at this facility use dose modulation, iterative reconstruction, and/or weight based d osing when appropriate to reduce radiation dose to as low as reasonably achievable (ALARA). [facility]: Dose Right [facility]: CareDose [facility]: Dose Right [facility]: Teradose 4D [facility]: Smart [employer] RADIATION DOSE: CT Rad equipment meets quality standard of care and radiation dose reduction techniq ues were employed. CTDIvol: 9.1 mGy. DLP: 186 mGy-cm. mGy. LIMITATIONS: None. FINDINGS: ALIGNMENT: Anatomic. MINERALIZATION: Normal. VERTEBRAL BODIES: No fractures or dislocation. DISCS: There is narrowing of the C5-6 disc space with small marginal osteophytes. FACETS, LATERAL MASSES, POSTERIOR ELEMENTS: Hypertrophic facet changes are seen in the mid cervical s pine, left more than right. HARDWARE: None in the spine. VISUALIZED RIBS: No fractures. LUNG APICES AND SOFT TISSUES: No significant or acute findings. OTHER: No other significant finding. IMPRESSION: Degenerative disc disease and mild spondylosis. Facet arthropathy. No acute finding. TECHNICAL DOCUMENTATION: JOB ID: [id number] Quality ID # [id number]: Final reports with documentation of one or more dose reduction techniques (e.g., Au tomated exposure control, adjustment of the mA and/or kV according to patient size, use of iterative reconstruction technique) 2010 [employer]- All Rights Reserved Reading location - IP/workstation name: [email or web address]
[2019-05-17 18:10] LABS: ALBUMIN 4.4 g/dL (3.5-5.0); ALKALINE PHOSPHATASE 72 U/L (38-126); ASPARTATE AMINO TRANSFERASE 43 U/L (14-36); BILIRUBIN,DIRECT 0.3 mg/dL (0.0-0.4); BILIRUBIN,TOTAL 0.8 mg/dL (0.2-1.3); TOTAL PROTEIN 8.1 g/dL (6.3-8.2)
[2019-05-17] MEDS ORDERED: CLONIDINE 0.1 MG/24 HR PATCH.TDWK TD ONE (18:40)
[2019-05-17] MEDS ORDERED: CHLORPROMAZINE HCL INJ 25 MG/1 ML AMPULE IM SCH (18:45)
[2019-05-17] MEDS ORDERED: OLANZAPINE INJ/PF 10 MG SDV IM SCH (19:00)
[2019-05-17] MEDS ORDERED: OLANZAPINE INJ/PF 10 MG SDV IM ONE (20:00)
[2019-05-18 07:12] VITALS: BP 145/73
--- NOTE | 2019-05-18 09:37 | EKG REPORT ---
SEVERITY:- OTHERWISE NORMAL ECG - SINUS TACHYCARDIA : Confirmed by: Maira Castañeda 18-May-2019 09:36:11
[2019-05-18] MEDS: BENZTROPINE MESYLATE INJ 2 MG/2 ML AMPULE IM SCH (09:56)
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
[2019-05-18] MEDS ORDERED: CHLORPROMAZINE HCL INJ 25 MG/1 ML AMPULE IM PRN (13:23)
[2019-05-18] MEDS ORDERED: CLONIDINE 0.1 MG/24 HR PATCH.TDWK TD ONE (13:26)
[2019-05-18 13:41] LABS: APPEARANCE,URINE CLEAR; BILIRUBIN,URINE NEGATIVE (NEGATIVE); COLOR,URINE YELLOW; GLUCOSE, URINE NEGATIVE (NEGATIVE); KETONES,URINE 20 mg/dL (NEGATIVE); LEUKOCYTE ESTERASE,URINE TRACE (NEGATIVE); NITRITE,URINE NEGATIVE (NEGATIVE); PROTEIN,URINE NEGATIVE (NEGATIVE); URINE SPECIFIC GRAVITY 1.012; UROBILINOGEN,URINE NEGATIVE mg/dL (<2.0)
[2019-05-18 14:03] LABS: URINE AMPHETAMINES SCREEN NEGATIVE; URINE BARBITURATES SCREEN NEGATIVE; URINE COCAINE SCREEN NEGATIVE; URINE METHADONE SCREEN NEGATIVE; URINE PHENCYCLIDINE SCREEN NEGATIVE
[2019-05-18 14:08] LABS: URINE BENZODIAZEPINES SCREEN UNCONFIRMED POSITIVE; URINE MARIJUANA (THC) SCREEN UNCONFIRMED POSITIVE
[2019-05-18] MEDS: LISINOPRIL 10 MG TABLET PO ONE ×2 (17:00→19:18)
[2019-05-18] MEDS: PANTOPRAZOLE SODIUM 20 MG TABLET.DR PO ONE ×2 (17:00→19:18)
[2019-05-18] MEDS ORDERED: LISINOPRIL 10 MG TABLET PO ONE (19:00)
[2019-05-18] MEDS ORDERED: PANTOPRAZOLE SODIUM 20 MG TABLET.DR PO ONE (19:00)
[2019-05-18] MEDS: OLANZAPINE INJ/PF 10 MG SDV IM SCH (19:05)
[2019-05-18] MEDS ORDERED: ACETAMINOPHEN 325 MG TABLET PO ONE (20:07)
--- NOTE | 2019-05-19 09:53 | PSYCHOLOGICAL NOTE ---
Psych Note - Psych Note Date seen by psych provider: 05/19/19 Time seen by psych provider: 09:10 Psych Note: Reason for Consult: Re-evaluation Check in conducted with patient: Patient engaged with clinician with an organized, linear and logical conversation. She maintained good eye contact. Her mood is irritable and conversational speech is short and communicates her irritability clearly during most of the conversation. Clinician notes the patient did start to relax and communicated in a normal rate, tone and prosody. She denies that she was or is experiencing any difficulties with withdrawal. She states she is prescribed 30 Xanax pills a month at 0.5mg. She states she doesn't get "strung out" on her medication. She became frustrated that she was not provided any pain medications because of her nose; " all they would give me was Tylenol, but I can't take Tylenol." She continued to disclose that she does have a history of substance abuse but denies current. She states she does not normal take pain medication because she has liver damage; "I have only taken pain medication 2 times in the last 7 to 8 years, when I had my hysterectomy and when I had my gallbladder removed. Normally I just suffer through pain because of my liver." She reports she feels safe at home with her son and wants to return home to him. She denies any concerns at this time and denies any thoughts of wanting to harm herself or others. Patient reports that she must have fallen which resulted in breaking her nose. She states that she has fallen in the past however this occurrence she does not even remember exactly what happened; "I must have passed out or something because last time I felt I could read clearly remember falling on the driveway onto the concrete this time I do not remember anything." Patient continued to state that her mother had experienced events similar when she was older of passing out and thinks this might have been what happened. Impression/Plan: Patient is recommended for rescind of IVC and is cleared from acute psychiatric services. Patient is no longer experiencing altered mental status. She is able to conduct an organized, linear and logical conversation with clinician. Patient originally was irritable and short tempered with clinician upon starting evaluation however was able to calm herself and engaged appropriately. Patient denies concerns and states that she feels safe in her home and wants to return home to her son. Patient admits to a history of substance abuse and there is strong concern the patient is misusing and or dependent on benzodiazepines. Patient is highly encouraged to follow-up with substance abuse treatment and was provided this information. Clinician notes patient is resistant stating her addiction issues are in the past not current. Dr. Lopez is consulted to care management of this patient; attending physicians in agreement with recommendations and disposition.
[2019-05-19] MEDS: BENZTROPINE MESYLATE INJ 2 MG/2 ML AMPULE IM SCH (10:21)
[2019-05-19] MEDS: OLANZAPINE INJ/PF 10 MG SDV IM SCH (10:21)
[2019-05-19] MEDS ORDERED: PHENAZOPYRIDINE HCL 200 MG TABLET PO ONE (10:48)
[2019-05-19] MEDS ORDERED: NITROFURANTOIN MONOHYD/M-CRYST 100 MG CAPSULE PO ONE (10:48)
--- NOTE | 2019-05-19 10:50 | ER Document Report ---
Doctor's Note Notes: 05/19/19 10:35 Patient resting calmly on stretcher and is interactive. Patient does complain of some dysuria and frequency and is concerned about UTI. Patient does have mild leukocyte esterase on urinalysis, will cover with short course of antibiotics at this time. Patient has been otherwise cleared from mental health team and he no longer meets IVC criteria at this time. Patient has a family member who will be coming to pick her up around 3 PM today. Patient otherwise is medically stable for discharge.
== END 2019-05-19 11:01 | disposition home or self-care (01) ==
LOC: ER 23:51
DX: S02.2XXA Fracture of nasal bones, initial encounter for closed fracture (principal); Y08.89XA Assault by other specified means, initial encounter; N39.0 Urinary tract infection, site not specified; R41.0 Disorientation, unspecified; I10 Essential (primary) hypertension; Z79.899 Other long term (current) drug therapy; Z78.1 Physical restraint status; Z88.8 Allergy status to other drugs, medicaments and biological substances; Z88.0 Allergy status to penicillin; Z88.1 Allergy status to other antibiotic agents
CPT/HCPCS: 93005; 99285; 96372; 36415; 80307 ×4; 85025; 80076; 80048; 81001; 93010; A9270 ×7; J0515 ×2; J3230 ×2; J3490 ×3; J8499

== ENCOUNTER 2019-06-06 16:56 | Emergency (ER) | payer MEDICARE, MEDICAID ==
--- NOTE | 2019-06-06 17:25 | ER Document Report ---
ED General - General Stated Complaint: PSYCH Time Seen by Provider: 06/06/19 16:58 Primary Care Provider: VERONIQUE RUELAS MD [Primary Care Provider] - Follow up as needed Notes: 68-year-old female presents with suicidal ideation. She was on several medications but is been off them for several days and presents complaining that she wants to kill herself. She has no plan. She actually wants to leave after being brought in by EMS but I was approached to fill out IVC paperwork for her. TRAVEL OUTSIDE OF THE [place]. IN LAST 30 DAYS: No - Related Data Allergies/Adverse Reactions: ciprofloxacin HCl [From Ciloxan] Allergy (Verified 05/16/19 23:58) fluoxetine HCl [From Prozac] Allergy (Verified 05/16/19 23:58) Penicillins Allergy (Verified 05/16/19 23:58) Past Medical History - Social History Smoking Status: Unknown if Ever Smoked Family History: DM - Past Medical History Cardiac Medical History: Reports: Hx Hypertension Denies: Hx Coronary Artery Disease, Hx Heart Attack Pulmonary Medical History: Denies: Hx Asthma, Hx Bronchitis, Hx COPD, Hx Pneumonia Neurological Medical History: Denies: Hx Cerebrovascular Accident, Hx Seizures Endocrine Medical History: Denies: Hx Diabetes Mellitus Type 1, Hx Diabetes Mellitus Type 2 Renal/ Medical History: Denies: Hx Peritoneal Dialysis GI Medical History: Reports: Hx Gastroesophageal Reflux Disease Musculoskeletal Medical History: Reports Hx Arthritis Skin Medical History: Reports Hx Cellulitis, Reports Hx MRSA Psychiatric Medical History: Reports: Hx Attention Deficit Hyperactivity Disorder, Hx Bipolar Disorder, Hx Depression Past Surgical History: Reports: Hx Cholecystectomy, Hx Tonsillectomy, Hx Tubal Ligation. Denies: Hx Pacemaker - Immunizations Hx Diphtheria, Pertussis, Tetanus Vaccination: Yes - per patient within past 5 years Review of Systems - Review of Systems Notes: REVIEW OF SYSTEMS GEN: Denies fever, chills, weight loss ENT: Denies sore throat, nasal discharge, ear pain EYES: Denies blurry vision, eye pain, discharge CV: Denies chest pain, palpitations, edema RESP: Denies cough, shortness of breath, wheezing GI: Denies abdominal pain, nausea, vomiting, diarrhea MSK: Denies joint pain/swelling, edema, SKIN: Denies rash, skin lesions LYMPH: Denies swollen glands/lymph nodes NEURO: Denies headache, focal weakness or numbness, dizziness PSYCH HPI PHYSICAL EXAMINATION General: No acute distress, well-nourished Head: Atraumatic, normocephalic ENT: Mouth normal, oropharynx moist, no exudates or tonsillar enlargement Eyes: Conjunctiva normal, pupils equal, lids normal Neck: No JVD, supple, no guarding CVS: Normal rate, regular rhythm, no murmurs Resp: No resp distress, equal and normal breath sounds bilaterally GI: Nondistended, soft, no tenderness to palpation, no rebound or guarding Ext: No deformities, no edema, normal range of motion in upper and lower ext Back: No CVA or midline TTP Skin: No rash, warm Lymphatic: No lymphadeopathy noted Neuro: Awake, alert. Face symmetric. GCS 15. Physical Exam - Vital signs Vitals: Temp Pulse Resp BP Pulse Ox 98.4 F 95 18 150/76 H 99 06/06/19 17:08 06/06/19 17:08 06/06/19 17:08 06/06/19 17:08 06/06/19 17:08 Course - Re-evaluation Re-evalutation: 06/06/19 17:48 Primary psychiatric complaints in a patient with history of the same No evidence of acute medical illness Psych protocol initiatedIVC ordered Consult for psych ordered. - Vital Signs Vital signs: Temp Pulse Resp BP Pulse Ox 98.4 F 95 18 150/76 H 99 06/06/19 17:08 06/06/19 17:08 06/06/19 17:08 06/06/19 17:08 06/06/19 17:08 - Laboratory Result Diagrams: 06/06/19 17:40 06/06/19 17:40 Laboratory results interpreted by me: 06/06/19 06/06/19 17:40 17:40 MCH 26.4 L RDW 15.8 H Glucose 122 H Calcium 10.6 H AST 38 H Total Protein 8.6 H Salicylates < 1.0 L Acetaminophen < 10 L Discharge - Discharge Clinical Impression: Suicidal ideation Condition: Good Disposition: PSYCH HOSP/UNIT Referrals: VERONIQUE RUELAS MD [Primary Care Provider] - Follow up as needed
--- NOTE | 2019-06-06 17:27 | ER Document Report ---
ED Medical Screen (RME) - General TRAVEL OUTSIDE OF THE U.S. IN LAST 30 DAYS: No <RENAY,KATHLEEN A - Last Filed: 06/06/19 17:18> <VALENCIA SEXTON - Last Filed: 06/06/19 21:21> - General Stated Complaint: PSYCH Time Seen by Provider: 06/06/19 16:58 Primary Care Provider: VERONIQUE RUELAS MD [Primary Care Provider] - Follow up as needed - [facility] Notes: 06/06/19 17:18 68-year-old female with history of bipolar disorder, hepatitis C presents for medical and mental health evaluation today. Patient states she wants to "run from herself" she does not "feel like myself" states she has suicidal thoughts but does not have a plan denies any homicidal ideation. Patient has been out of her Ritalin for her ADHD and her trazodone for sleep since she was last evaluated at [facility] by the mental health team. Denies any fevers chills, chest pain, shortness of breath, nausea vomiting or diarrhea. Patient states she does not want to stay tonight but she does have to go home to her cats. I have greeted and performed a rapid initial assessment of this patient. A comp rehensive ED assessment and evaluation of the patient, analysis of test results and completion of the medical decision making process will be conducted by additional ED providers. PHYSICAL EXAMINATION: GENERAL: Well-appearing, well-nourished and in no acute distress. HEAD: Atraumatic, normocephalic. EYES: Pupils equal round extraocular movements intact, conjunctiva are normal. NECK: Normal range of motion CV: s1, s2 regular LUNGS: No respiratory distress Musculoskeletal: Normal range of motion NEUROLOGICAL: Crying, anxious SKIN: Warm, Dry, normal turgor, no rashes or lesions noted. (KATHLEEN NIÑO) - Related Data Allergies/Adverse Reactions: ciprofloxacin HCl [From Ciloxan] Allergy (Verified 05/16/19 23:58) fluoxetine HCl [From Prozac] Allergy (Verified 05/16/19 23:58) Penicillins Allergy (Verified 05/16/19 23:58) Past Medical History - Past Medical History Cardiac Medical History: Reports: Hx Hypertension Denies: Hx Coronary Artery Disease, Hx Heart Attack Pulmonary Medical History: Denies: Hx Asthma, Hx Bronchitis, Hx COPD, Hx Pneumonia Neurological Medical History: Denies: Hx Cerebrovascular Accident, Hx Seizures Endocrine Medical History: Denies: Hx Diabetes Mellitus Type 1, Hx Diabetes Mellitus Type 2 Renal/ Medical History: Denies: Hx Peritoneal Dialysis GI Medical History: Reports: Hx Gastroesophageal Reflux Disease Musculoskeltal Medical History: Reports Hx Arthritis Skin Medical History: Reports Hx Cellulitis, Reports Hx MRSA Psychiatric Medical History: Reports: Hx Attention Deficit Hyperactivity Disorder, Hx Bipolar Disorder, Hx Depression Past Surgical History: Reports: Hx Cholecystectomy, Hx Tonsillectomy, Hx Tubal Ligation. Denies: Hx Pacemaker - Immunizations Hx Diphtheria, Pertussis, Tetanus Vaccination: Yes - per patient within past 5 years <KATHLEEN NIÑO - Last Filed: 06/06/19 17:18> Review of Systems <VALENCIA SEXTON - Last Filed: 06/06/19 21:21> - Review of Systems Notes: REVIEW OF SYSTEMS GEN: Denies fever, chills, weight loss ENT: Denies sore throat, nasal discharge, ear pain EYES: Denies blurry vision, eye pain, discharge CV: Denies chest pain, palpitations, edema RESP: Denies cough, shortness of breath, wheezing GI: Denies abdominal pain, nausea, vomiting, diarrhea MSK: Denies joint pain/swelling, edema, SKIN: Denies rash, skin lesions LYMPH: Denies swollen glands/lymph nodes NEURO: Denies headache, focal weakness or numbness, dizziness PSYCH: Depressed mood anxiety PHYSICAL EXAMINATION General: No acute distress, well-nourished Head: Atraumatic, normocephalic ENT: Mouth normal, oropharynx moist, lips normal Eyes: Conjunctiva normal, pupils equal, lids normal Neck: No JVD, supple, no guarding Resp: No resp distress, equal chest rise GI: Nondistended, no guarding Back: No midline or CVA tenderness Ext: No deformities, no edema Skin: Well-perfused, no rash Neuro: Awake, alert. Face symmetric. (VALENCIA SEXTON) Physical Exam - Vital signs Vitals: Temp Pulse Resp BP Pulse Ox 98.4 F 95 18 150/76 H 99 06/06/19 17:08 06/06/19 17:08 06/06/19 17:08 06/06/19 17:08 06/06/19 17:08 Course - Laboratory Result Diagrams: 06/06/19 17:40 06/06/19 17:40 <VALENCIA SEXTON - Last Filed: 06/06/19 21:21> - Re-evaluation Re-evalutation: 06/06/19 21:21 Depressed mood anxiety multiple psychiatric issues We will placed on IVC given that she has some suicidal thoughts Medication recommendations were done by Dr. Lopez and entered by me Patient was stable throughout her ED stay. On IVC medically cleared. Despite a psych facility (VALENCIA SEXTON) - Vital Signs Vital signs: Temp Pulse Resp BP Pulse Ox 98.4 F 95 18 150/76 H 99 06/06/19 17:08 06/06/19 17:08 06/06/19 17:08 06/06/19 17:08 06/06/19 17:08 - Laboratory Laboratory results interpreted by me: 06/06/19 06/06/19 17:40 17:40 MCH 26.4 L RDW 15.8 H Glucose 122 H Calcium 10.6 H AST 38 H Total Protein 8.6 H Salicylates < 1.0 L Acetaminophen < 10 L Doctor's Discharge <KATHLEEN NIÑO - Last Filed: 06/06/19 17:18> <VALENCIA SEXTON - Last Filed: 06/06/19 21:21> - Discharge Clinical Impression: Suicidal ideation Condition: Good Disposition: PSYCH HOSP/UNIT Referrals: VERONIQUE RUELAS MD [Primary Care Provider] - Follow up as needed
[2019-06-06 18:03] LABS: ABSOLUTE BASOPHILS # (AUTO) 0.1 10^3/uL (0.0-0.2); ABSOLUTE EOSINOPHILS # (AUTO) 0.1 10^3/uL (0.0-0.6); ABSOLUTE LYMPHOCYTES (AUTO) 2.1 10^3/uL (0.5-4.7); ABSOLUTE MONOCYTES (AUTO) 0.6 10^3/uL (0.1-1.4); ABSOLUTE NEUT (AUTO) 3.8 10^3/uL (1.7-8.2); BASOPHILS % (AUTO) 0.8 % (0-2); EOSINOPHILS % (AUTO) 1.3 % (0-6); HEMATOCRIT 37.2 % (36.0-47.0); HEMOGLOBIN 12.2 g/dL (12.0-15.5); LYMPHOCYTES % (AUTO) 31.8 % (13-45); MEAN CORPUSCULAR HEMOGLOBIN 26.4 pg (27.0-33.4); MEAN CORPUSCULAR HGB CONC 32.7 g/dL (32.0-36.0); MEAN CORPUSCULAR VOLUME 81 fl (80-97); MONOCYTES % (AUTO) 8.8 % (3-13); PLATELET COUNT 228 10^3/uL (150-450); RED BLOOD COUNT 4.61 10^6/uL (3.72-5.28); RED CELL DISTRIBUTION WIDTH 15.8 % (11.5-14.0); SEGMENTED NEUTROPHILS % (AUTO) 57.3 % (42-78); TOTAL CELLS COUNTED % (AUTO) 100 %; WHITE BLOOD COUNT 6.6 10^3/uL (4.0-10.5)
[2019-06-06 18:05] LABS: APPEARANCE,URINE CLEAR; BILIRUBIN,URINE NEGATIVE (NEGATIVE); COLOR,URINE STRAW; GLUCOSE, URINE NEGATIVE (NEGATIVE); KETONES,URINE NEGATIVE (NEGATIVE); LEUKOCYTE ESTERASE,URINE NEGATIVE (NEGATIVE); NITRITE,URINE NEGATIVE (NEGATIVE); PROTEIN,URINE NEGATIVE (NEGATIVE); URINE SPECIFIC GRAVITY 1.005; UROBILINOGEN,URINE NEGATIVE mg/dL (<2.0)
[2019-06-06 18:29] LABS: ALBUMIN 4.6 g/dL (3.5-5.0); ALKALINE PHOSPHATASE 75 U/L (38-126); ANION GAP 11 (5-19); ASPARTATE AMINO TRANSFERASE 38 U/L (14-36); BILIRUBIN,DIRECT 0.3 mg/dL (0.0-0.4); BILIRUBIN,TOTAL 0.6 mg/dL (0.2-1.3); BLOOD UREA NITROGEN 11 mg/dL (7-20); CALCIUM 10.6 mg/dL (8.4-10.2); CARBON DIOXIDE 24 mmol/L (22-30); CHLORIDE 105 mmol/L (98-107); GLUCOSE 122 mg/dL (75-110); POTASSIUM 4.1 mmol/L (3.6-5.0); TOTAL PROTEIN 8.6 g/dL (6.3-8.2)
[2019-06-06 18:32] LABS: URINE AMPHETAMINES SCREEN NEGATIVE; URINE BARBITURATES SCREEN NEGATIVE; URINE BENZODIAZEPINES SCREEN NEGATIVE; URINE COCAINE SCREEN NEGATIVE; URINE METHADONE SCREEN NEGATIVE; URINE PHENCYCLIDINE SCREEN NEGATIVE
[2019-06-06 18:34] LABS: ACETAMINOPHEN < 10 ug/mL (10-30); ALCOHOL < 10 mg/dL (NONE DETECTED); SALICYLATE < 1.0 mg/dL (2.0-20.0)
[2019-06-06 18:35] LABS: URINE MARIJUANA (THC) SCREEN UNCONFIRMED POSITIVE
[2019-06-06] MEDS ORDERED: NICOTINE 21 MG/24 HR PATCH.TD24 TD ONE (19:32)
[2019-06-06] MEDS ORDERED: CHLORPROMAZINE HCL INJ 25 MG/1 ML AMPULE IM PRN (19:33)
[2019-06-06] MEDS: OLANZAPINE INJ/PF 10 MG SDV IM SCH (19:47)
[2019-06-06] MEDS: BUSPIRONE HCL 10 MG TABLET PO SCH (21:36)
[2019-06-06] MEDS ORDERED: DIPHENHYDRAMINE HCL 25 MG CAPSULE PO ONE (23:00)
[2019-06-06] MEDS ORDERED: MELATONIN 3 MG TABLET PO ONE (23:01)
[2019-06-06] MEDS ORDERED: OLANZAPINE INJ/PF 10 MG SDV IM ONE (23:42)
--- NOTE | 2019-06-06 23:44 | ER Document Report ---
Doctor's Note Notes: 06/06/19 23:42 Pt attempted to run out of ambulance bay. Pt was brought back by security. Pt evaluated by this provider. Pt is acting very aggressively and cursing at staff. Pt told this PA to "get the fuck out of my room!" Restraints ordered. Zyprexa 5 mg IM also ordered after discussion with Dr. Bhatt.
[2019-06-07] MEDS: BUSPIRONE HCL 10 MG TABLET PO SCH (09:28)
[2019-06-07] MEDS: OLANZAPINE INJ/PF 10 MG SDV IM SCH ×2 (09:29→09:37)
[2019-06-07] MEDS ORDERED: PANTOPRAZOLE SODIUM 20 MG TABLET.DR PO SCH (10:00)
[2019-06-07] MEDS ORDERED: LISINOPRIL 10 MG TABLET PO SCH (10:00)
[2019-06-07 12:39] VITALS: BP 134/70
--- NOTE | 2019-06-07 14:31 | EKG REPORT ---
SEVERITY:- NORMAL ECG - SINUS RHYTHM : Confirmed by: Maira Castañeda 07-Jun-2019 14:30:22
== END 2019-06-07 12:43 | disposition home or self-care (01) ==
LOC: ER 16:56
DX: R45.851 Suicidal ideations (principal); F90.9 Attention-deficit hyperactivity disorder, unspecified type; F41.9 Anxiety disorder, unspecified; Z79.899 Other long term (current) drug therapy; I10 Essential (primary) hypertension
CPT/HCPCS: 93005; 99285; 96372; 36415; 80307 ×4; 85025; 80053; 81001; 93010; J3230; A9270 ×7; J3490